=== PATIENT | female | born 1970 | race Caucasian/White ===

== ENCOUNTER 2023-09-15 16:06 | Emergency (ER) | payer OTHER ==
[~2023-09-15] VITALS: Ht 162.6 cm; Wt 61.4 kg
[2023-09-15] MEDS: HYDROcodone/acetaminophen 5mg/325mg tablet PO ONE (17:01)
[2023-09-15] MEDS: ketorolac trometh. 30mg/ml inj. IM ONE (17:02)
[2023-09-15 20:19] VITALS: BP 108/63; PULSE 68; RESP 14; TEMP 98.6; O2SAT 97
== END 2023-09-15 20:22 | disposition home or self-care (01) ==
LOC: ER 16:07
DX: S82.492A Other fracture of shaft of left fibula, initial encounter for closed fracture (principal); M25.572 Pain in left ankle and joints of left foot; M54.2 Cervicalgia; Z88.2 Allergy status to sulfonamides; W20.8XXA Other cause of strike by thrown, projected or falling object, initial encounter; Y93.89 Activity, other specified; Y92.89 Other specified places as the place of occurrence of the external cause; Y99.8 Other external cause status
CPT/HCPCS: 29505; 72125; 73564; 73610; 96372; 99285; J1885